=== PATIENT | male | born 1985 | race American Indian/Alaskan Native ===

== ENCOUNTER 2022-02-08 18:19 | Emergency (ER) | payer SELFPAY ==
[2022-02-08] MEDS ORDERED: ASPIRIN 325 MG TAB PO ONE (20:12)
--- NOTE | 2022-02-08 20:35 | XRay Report ---
CHEST 2 VIEWS INDICATION / CLINICAL INFORMATION: CHEST PAIN. FINDINGS: SUPPORT DEVICES: None. HEART / MEDIASTINUM: Borderline enlarged. LUNGS / PLEURA: No significant pulmonary or pleural abnormality. No pneumothorax. ADDITIONAL FINDINGS: No significant additional findings. IMPRESSION: Borderline enlarged heart. Signer Name: Levar Costa MD Signed: 02/08/2022 8:30 PM Workstation Name: [employer]
[2022-02-08 20:57] LABS: Basophils # (Auto) 0.1 K/mm3 (0.0-0.1); Basophils % (Auto) 0.7 % (0.0-1.8); Eosinophils # (Auto) 0.2 K/mm3 (0.0-0.4); Eosinophils % (Auto) 2.2 % (0.0-4.3); Hematocrit 42.5 % (35.5-45.6); Hemoglobin 14.6 gm/dl (11.8-15.2); Lymphocytes # (Auto) 2.9 K/mm3 (1.2-5.4); Lymphocytes % (Auto) 36.3 % (13.4-35.0); Mean Corpuscular HGB Conc 34 % (32-34); Mean Corpuscular Volume 95 fl (84-94); Monocytes # (Auto) 0.6 K/mm3 (0.0-0.8); Platelet Count 280 K/mm3 (140-440); Red Blood Count 4.46 M/mm3 (3.65-5.03); Red Cell Distribution Width 14.8 % (13.2-15.2)
[2022-02-08 21:15] LABS: Alanine Aminotransferase 14 units/L (7-56); BUN/Creatinine Ratio 11; Blood Urea Nitrogen 12 mg/dL (9-20); Calcium 9.4 mg/dL (8.4-10.2); Hemolysis Index 9
--- NOTE | 2022-02-09 00:47 | Emergency Department Report ---
ED General Adult HPI - General Chief complaint: Abdominal Pain Stated complaint: CHEST PAIN Time Seen by Provider: 02/08/22 21:32 Source: EMS Mode of arrival: Stretcher Limitations: No Limitations - History of Present Illness Initial comments: 36-year-old -Maced[place] male smoker and frequent alcohol participant presents emerged part with complaining of a 1 year history abdominal pain and left lower chest pain off and on of unknown etiology pain associated with coughing injection and [place] and nausea primarily whenever he consumes his alcohol. Reports no fever, chills, sweats but no hemoptysis no no hematemesis does create a lot of mucus with coughing. Radiation: non-radiation Severity scale (0 -10): 0 Quality: dull Consistency: constant Improves with: none Worsens with: none Associated Symptoms: denies: confusion, chest pain, diaphoresis, loss of appetite, malaise, nausea/vomiting, syncope, weakness - Related Data Previous Rx's Medication Instructions Recorded Last Taken Type Albuterol Mdi (or & Nicu Only) 1 puff IH Q4-6H PRN #1 inha 02/09/22 Unknown Rx [ProAir HFA Inhaler] guaiFENesin/CODEINE [Robitussin AC] 5 ml PO Q6H PRN #120 ml 02/09/22 Unknown Rx predniSONE [Deltasone] 20 mg PO QDAY #7 tab 02/09/22 Unknown Rx Allergies Allergy/AdvReac Type Severity Reaction Status Date / Time No Known Allergies Allergy Verified 02/08/22 18:26 ED Review of Systems ROS: Stated complaint: CHEST PAIN Other details as noted in HPI Comment: All other systems reviewed and negative ED Past Medical Hx - Past Medical History Previous Medical History?: No - Surgical History Past Surgical History?: No - Medications Home Medications: Home Medications Medication Instructions Recorded Confirmed Last Taken Type Albuterol Mdi (or & Nicu Only) 1 puff IH Q4-6H PRN #1 inha 02/09/22 Unknown Rx [ProAir HFA Inhaler] guaiFENesin/CODEINE [Robitussin AC] 5 ml PO Q6H PRN #120 ml 02/09/22 Unknown Rx predniSONE [Deltasone] 20 mg PO QDAY #7 tab 02/09/22 Unknown Rx ED Physical Exam - General Limitations: No Limitations General appearance: alert, in no apparent distress - Head Head exam: Present: atraumatic, normocephalic - Eye Eye exam: Present: normal appearance, PERRL, EOMI Pupils: Present: normal accommodation - ENT ENT exam: Present: mucous membranes moist - Neck Neck exam: Present: normal inspection - Respiratory Respiratory exam: Present: normal lung sounds bilaterally. Absent: respiratory distress - Cardiovascular Cardiovascular Exam: Present: regular rate, normal rhythm. Absent: systolic murmur, diastolic murmur, rubs, gallop - GI/Abdominal GI/Abdominal exam: Present: soft, normal bowel sounds - Rectal Rectal exam: Present: deferred - Extremities Exam Extremities exam: Present: normal inspection - Back Exam Back exam: Present: normal inspection - Neurological Exam Neurological exam: Present: alert, oriented X3 - Psychiatric Psychiatric exam: Present: normal affect, normal mood - Skin Skin exam: Present: warm, dry, intact, normal color. Absent: rash ED Course Vital Signs 02/08/22 02/08/22 02/08/22 18:25 22:48 22:49 Temperature 98.1 F 98.0 F Pulse Rate 82 73 Respiratory 16 18 Rate Blood Pressure 156/102 128/86 [Right] O2 Sat by Pulse 99 99 99 Oximetry ED Medical Decision Making - Lab Data Result diagrams: 02/08/22 20:28 02/08/22 20:28 - Radiology Data Radiology results: report reviewed [address] [address] XRay Report Signed Patient: CARLOS KLINE JR MR#: [id number] : 1985 Acct:[id number] Age/Sex: 36 / M ADM Date: 02/08/22 Loc: ED Attending Dr: Ordering Physician: ED MD ZACH Date of Service: 02/08/22 Procedure(s): XR chest routine 2V Accession Number(s): [id number] cc: ED MD ZACH Fluoro Time In Minutes: CHEST 2 VIEWS INDICATION / CLINICAL INFORMATION: CHEST PAIN. FINDINGS: SUPPORT DEVICES: None. HEART / MEDIASTINUM: Borderline enlarged. LUNGS / PLEURA: No significant pulmonary or pleural abnormality. No pneumothorax. ADDITIONAL FINDINGS: No significant additional findings. IMPRESSION: Borderline enlarged heart. Signer Name: Levar Costa MD Signed: 02/08/2022 8:30 PM Workstation Name: [id number] Transcribed By: Dictated By: Levar Costa MD Electronically Authenticated By: Levar Costa MD Signed Date/Time: 02/08/222029 DD/ 29 TD/TT: Print Cancel - Medical Decision Making This patient presents with dyspnea most likely secondary to nonemergent cause. Differential diagnosis includes asthma, bronchitis, pleuritic pulmonary issue, viral syndrome. Presentation not consistent with acute cardiac etiologies to include ACS (heart score), CHF, pericardial effusion/tamponade. Presentation not consistent with acute respiratory etiologies to include acute pulmonary embolism ( PERC negative), pneumothorax, asthma, COPD exacerbation, infectious etiology such as pneumonia. The presentation also not consistent with known cardiopulmonary causes to include toxic syndrome, metabolic etiology such as acidemia or electrolyte derangements, sepsis, neurologic causes. Critical care attestation.: If time is entered above; I have spent that time in minutes in the direct care of this critically ill patient, excluding procedure time. ED Disposition Clinical Impression: Bronchitis Disposition: 01 HOME / SELF CARE / HOMELESS Is pt being admited?: No Does the pt Need Aspirin: No Condition: Stable Instructions: How to Use a Metered Dose Inhaler, Upper Respiratory Infection, Adult, [id number], How to Use a Dry Powder Inhaler, Chronic Bronchitis (ED) Additional Instructions: You were evaluated emergency department today for chest pain. Your evaluation has shown no medicals conditions requiring emergent intervention at this time, however recommend that you follow-up with your primary care physician or your test skein winder soon as possible for further testing as an outpatient. Please schedule an appointment for follow-up with your primary care physician as soon as possible. Return to emergency department if you expands worsening uncontrolled chest pain, shortness of breath, lightheadedness, feeling faint, nausea, vomiting or any other concerning symptoms. You have been evaluated emergency department today for abdominal pain. Your evaluation did not show evidence of any medical conditions requiring emergent intervention at this time. Your lipase was it was elevated but not to a significant degree significant pancreatitis does not appear to be present at this time please drink plenty of fluids. Please schedule an appointment with your primary care physician. Return to emergency department if you experience worsening uncontrolled pain, fevers of 100.4 or greater, recurrent vomiting, inability to tolerate food or fluids by mouth, bloody stools or vomit, black tarry stools, or any other juan rning symptoms. Prescriptions: predniSONE [Deltasone] 20 mg PO QDAY #7 tab Albuterol Mdi (or & Nicu Only) [ProAir HFA Inhaler] 1 puff IH Q4-6H PRN #1 inha PRN Reason: Cough guaiFENesin/CODEINE [Robitussin AC] 5 ml PO Q6H PRN #120 ml PRN Reason: Cough Referrals: PRIMARY CARE, [Primary Care Provider] - 3-5 Days CALLI WOOTEN MD [Staff Physician] - 3-5 Days
[2022-02-09 01:10] VITALS: BP 132/87
--- NOTE | 2022-02-11 13:15 | Electrocardiograph Report ---
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
--- NOTE | 2022-02-11 13:16 | Electrocardiograph Report ---
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
== END 2022-02-09 01:10 | disposition home or self-care (01) ==
LOC: ED 18:19
DX: J40 Bronchitis, not specified as acute or chronic (principal); R07.89 Other chest pain; Z79.899 Other long term (current) drug therapy
CPT/HCPCS: 36415; 71046; 80053; 83690; 84484; 85025; 93005; 99284